=== PATIENT | male | born 1995 | race Caucasian/White ===

== ENCOUNTER 2018-05-30 13:11 | Emergency (ER) | payer BC ==
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
[2018-05-30 13:59] VITALS: BP 175/92
== END 2018-05-30 14:30 ==
DX: R10.30 Lower abdominal pain, unspecified (principal); M79.652 Pain in left thigh